=== PATIENT | female | born 1960 | race American Indian/Alaskan Native ===

== ENCOUNTER 2021-05-21 09:58 | Emergency (ER) | payer MEDICARE ==
[2021-05-21] MEDS ORDERED: ASPIRIN 81 MG TAB CHEW PO ONE (10:53)
--- NOTE | 2021-05-21 11:01 | XRay Report ---
CHEST 2 VIEWS INDICATION / CLINICAL INFORMATION: chest pain. COMPARISON: None available. FINDINGS: SUPPORT DEVICES: None. HEART / MEDIASTINUM: No significant abnormality. LUNGS / PLEURA: No significant pulmonary or pleural abnormality. No pneumothorax. ADDITIONAL FINDINGS: No significant additional findings. IMPRESSION: 1. No acute findings. Signer Name: Kyle Monzon MD Signed: 05/21/2021 10:56 AM Workstation Name: [id number]
--- NOTE | 2021-05-21 11:05 | Emergency Department Report ---
ED Chest Pain HPI - General Chief Complaint: Chest Pain Stated Complaint: CP/ARM TINGLING Time Seen by Provider: 05/21/21 10:27 Source: patient Mode of arrival: Ambulatory Limitations: No Limitations - History of Present Illness Initial Comments: 61-year-old -[place] female patient with history of hypertension presents with complaints of left-sided chest pain and tingling to her left arm x2 weeks. Patient states over the last 2 days the pain has become constant and rates her pain as a 7/10 in severity. She describes the pain as a pressure. She denies any personal history or family history of heart disease. Patient also denies any cough, shortness of breath, extremity swelling, fever/chills/sweats, loss of taste or smell, hemoptysis, recent long travel, leg pain/swelling, or history of DVT/PE/cancer. No hormone use per patient. She has not tried anything for her pain. Pain worsens at night when lying down per patient. Pain is somewhat exacerbated with ambulation per patient - Related Data Allergies Allergy/AdvReac Type Severity Reaction Status Date / Time No Known Allergies Allergy Unverified 05/21/21 10:10 Heart Score - HEART Score History: Moderately suspicious EKG: Normal Age: 45-65 Risk factors: 1-2 risk factors Troponin: < normal limit HEART Score: 3 - EKG Read Time Time EKG Completed: 10:00 EKG Read Time: 10:05 - Critical Actions Critical Actions: 0-3 pts:0.9-1.7%risk of adverse cardiac event.Candidate for discharge ED Review of Systems ROS: Stated complaint: CP/ARM TINGLING Other details as noted in HPI Constitutional: denies: chills, fever Respiratory: denies: cough, shortness of breath Cardiovascular: chest pain Gastrointestinal: denies: abdominal pain Hematological/Lymphatic: denies: swollen glands ED Past Medical Hx - Past Medical History Previous Medical History?: Yes Hx Hypertension: Yes - Surgical History Past Surgical History?: Yes Additional Surgical History: TL ED Physical Exam - General Limitations: No Limitations General appearance: alert, in no apparent distress, obese - Head Head exam: Present: atraumatic, normocephalic - Eye Eye exam: Present: normal appearance. Absent: scleral icterus - Neck Neck exam: Present: normal inspection - Respiratory Respiratory exam: Present: normal lung sounds bilaterally. Absent: respiratory distress, chest wall tenderness - Cardiovascular Cardiovascular Exam: Present: regular rate, normal rhythm. Absent: systolic murmur, diastolic murmur, rubs, gallop - GI/Abdominal GI/Abdominal exam: Present: soft. Absent: tenderness - Extremities Exam Extremities exam: Absent: calf tenderness (No tenderness or swelling noted to extremities bilaterally) - Back Exam Back exam: Present: full ROM - Neurological Exam Neurological exam: Present: alert, oriented X3, CN II-XII intact, normal gait. Absent: motor sensory deficit - Expanded Neurological Exam Expanded Cerebellar function: Finger to Nose: Normal, Heel to Morgan: Normal, Romberg: Normal Sensory exam: Upper Extremity Light Touch: Normal, Lower Extremity Light Touch: Normal Motor strength exam: RUE: 4, LUE: 4, RLE: 4, LLE: 4 Best Eye Response (Winston): (4) open spontaneously Best Motor Response (Winston): (6) obeys commands Best Verbal Response ([place]): (5) oriented Winston Total: 15 - Psychiatric Psychiatric exam: Present: normal affect, normal mood ED Course Vital Signs 05/21/21 05/21/21 05/21/21 10:21 11:20 12:47 Temperature 98.3 F 98.6 F Pulse Rate 79 70 72 Respiratory 20 16 Rate Blood Pressure 198/99 210/106 191/90 O2 Sat by Pulse 96 99 Oximetry 05/21/21 14:31 Temperature 99.0 F Pulse Rate 78 Respiratory 18 Rate Blood Pressure 185/90 O2 Sat by Pulse 99 Oximetry ED Medical Decision Making - Lab Data Result diagrams: 05/21/21 10:29 05/21/21 10:29 Lab Results 05/21/21 05/21/21 05/21/21 Range/Units 10:29 10:29 11:41 WBC 5.9 (4.5-11.0) K/mm3 RBC 3.69 (3.65-5.03) M/mm3 Hgb 11.8 (10.1-14.3) gm/dl Hct 34.3 (30.3-42.9) % MCV 93 (79-97) fl MCH 32 (28-32) pg MCHC 34 (30-34) % RDW 15.2 (13.2-15.2) % Plt Count 236 (140-440) K/mm3 Lymph % (Auto) 40.2 H (13.4-35.0) % [place] % (Auto) 11.8 H (0.0-7.3) % Eos % (Auto) 3.2 (0.0-4.3) % Baso % (Auto) 0.7 (0.0-1.8) % Lymph # (Auto) 2.4 (1.2-5.4) K/mm3 [place] # (Auto) 0.7 (0.0-0.8) K/mm3 Eos # (Auto) 0.2 (0.0-0.4) K/mm3 Baso # (Auto) 0.0 (0.0-0.1) K/mm3 Seg Neutrophils % 44.1 (40.0-70.0) % Seg Neutrophils # 2.6 (1.8-7.7) K/mm3 Sodium 141 (137-145) mmol/L Potassium 3.8 (3.6-5.0) mmol/L Chloride 105.3 (98-107) mmol/L Carbon Dioxide 24 (22-30) mmol/L Anion Gap 16 mmol/L BUN 6 L (7-17) mg/dL Creatinine 0.6 (0.6-1.2) mg/dL Estimated GFR > 60 ml/min BUN/Creatinine Ratio 10 % Glucose 82 (65-100) mg/dL Calcium 9.3 (8.4-10.2) mg/dL Total Bilirubin 0.30 (0.1-1.2) mg/dL AST 14 (5-40) units/L ALT 11 (7-56) units/L Alkaline Phosphatase 88 (35-129) units/L Troponin T < 0.010 < 0.010 (0.00-0.029) ng/mL Total Protein 7.1 (6.3-8.2) g/dL Albumin 4.1 (3.9-5) g/dL Albumin/Globulin Ratio 1.4 % - EKG Data EKG shows normal: sinus rhythm Rate: normal - EKG Data Interpretation: LVH, other (Left atrial hypertrophy) - Radiology Data Radiology results: report reviewed CHEST 2 VIEWS INDICATION / CLINICAL INFORMATION: chest pain. COMPARISON: None available. FINDINGS: SUPPORT DEVICES: None. HEART / MEDIASTINUM: No significant abnormality. LUNGS / PLEURA: No significant pulmonary or pleural abnormality. No pneumothorax. ADDITIONAL FINDINGS: No significant additional findings. IMPRESSION: 1. No acute findings. - Medical Decision Making 61-year-old -[place] female patient with history of hypertension presents with complaints of left-sided chest pain and tingling to her left arm x2 weeks. Patient states over the last 2 days the pain has become constant and rates her pain as a 7/10 in severity. She describes the pain as a pressure. She denies any personal history or family history of heart disease. Patient also denies any cough, shortness of breath, extremity swelling, fever/chills/sweats, loss of taste or smell, hemoptysis, recent long travel, leg pain/swelling, or history of DVT/PE/cancer. No hormone use per patient. She has not tried anything for her pain. Pain worsens at night when lying down per patient. Pain is somewhat exacerbated with ambulation per patient Physical exam is normal. No significant abnormalities noted on CBC or CMP. Initial and repeat troponins are normal. Chest x-ray is normal. Heart score = 3. No pain currently per patient. Discussed patient with Dr. Soo guajardo atient is stable for discharge home and follow-up with cardiology and primary care. Discussed in great detail with patient signs and symptoms that should prompt immediate return to the emergency department, she verbalized understanding. Blood pressure noted to be elevated. Patient has history of hypertension and states compliance with her home medications. She is currently following with her PCP. Neuro exam is normal. Critical care attestation.: If time is entered above; I have spent that time in minutes in the direct care of this critically ill patient, excluding procedure time. ED Disposition Clinical Impression: Other chest pain Disposition: HOME / SELF CARE / HOMELESS Is pt being admited?: No Condition: Stable Instructions: Nonspecific Chest Pain, Adult, [id number] Referrals: ANU TORRES MD [Staff Physician] - 2-3 Days PRIMARY CARE, [Primary Care Provider] - 3-5 Days
[2021-05-21 11:10] LABS: Basophils % (Auto) 0.7 % (0.0-1.8); Eosinophils # (Auto) 0.2 K/mm3 (0.0-0.4); Eosinophils % (Auto) 3.2 % (0.0-4.3); Hematocrit 34.3 % (30.3-42.9); Hemoglobin 11.8 gm/dl (10.1-14.3); Lymphocytes # (Auto) 2.4 K/mm3 (1.2-5.4); Lymphocytes % (Auto) 40.2 % (13.4-35.0); Mean Corpuscular HGB Conc 34 % (30-34); Mean Corpuscular Volume 93 fl (79-97); Monocytes # (Auto) 0.7 K/mm3 (0.0-0.8); Monocytes % (Auto) 11.8 % (0.0-7.3); Platelet Count 236 K/mm3 (140-440); Red Blood Count 3.69 M/mm3 (3.65-5.03); Red Cell Distribution Width 15.2 % (13.2-15.2)
[2021-05-21 11:39] LABS: Alanine Aminotransferase 11 units/L (7-56); Albumin 4.1 g/dL (3.9-5); Blood Urea Nitrogen 6 mg/dL (7-17); Calcium 9.3 mg/dL (8.4-10.2); Hemolysis Index 4
[2021-05-21 11:47] LABS: BUN/Creatinine Ratio 10
[2021-05-21] MEDS ORDERED: hydrALAZINE 25 MG TAB PO ONE (12:30)
--- NOTE | 2021-05-21 13:31 | Electrocardiograph Report ---
[facility] Test Date: 2021-05-21 Test Time: 10:13:45 Pat Name: ALCIDES CAMPA Department: Room: Gender: F Administrative Receptionist: ANGIE : 1960 Requested By: LENNIE ORDAZ Order Number: [id number] Reading MD: Mary Beth Barnes Measurements Intervals [place] Rate: 76 P: 46 SD: 132 QRS: -20 QRSD: 88 T: 6 QT: 405 QTc: 456 Interpretive Statements Sinus rhythm Probable left atrial enlargement Low voltage, precordial leads Probable left ventricular hypertrophy No previous ECG available for comparison Electronically Signed On 05-21-2021 13:30:51 EDT by Mary Beth Barnes
[2021-05-21 14:33] VITALS: BP 185/90
== END 2021-05-21 14:33 | disposition home or self-care (01) ==
LOC: ED 09:58
DX: R07.89 Other chest pain (principal); I10 Essential (primary) hypertension; Z98.890 Other specified postprocedural states
CPT/HCPCS: 36415; 71046; 80053; 84484; 85025; 93005; 99284